=== PATIENT | male | born 1965 | race African-American/Black ===

== ENCOUNTER 2017-05-10 12:53 | Emergency (ER) | payer BC ==
--- NOTE | 2017-05-10 13:38 | EDM.PDOC ---
ED HPI GENERAL MEDICAL PROBLEM - General Chief Complaint: Laceration Stated Complaint: FALL/LACERATION LIP/RT CHEEK Time Seen by Provider: 05/10/17 13:23 Source of Information: Reports: Patient History Limitations: Reports: No Limitations - History of Present Illness INITIAL COMMENTS - FREE TEXT/NARRATIVE: HISTORY AND PHYSICAL: History of present illness: Patient is a 51-year-old male who presents to the emergency room after falling on Thursday afternoon. He states he was ambulating and became dizzy and had a syncopal event hitting his face on the gravel ground. He reports afterwards he felt "fine" had a mild headache and facial abrasions. He denies any chest pain, shortness of breath, abdominal pain, nausea, vomiting or diarrhea. Review of systems: As per history of present illness and below otherwise all systems reviewed and negative. Past medical history: As per history of present illness and as reviewed below otherwise noncontributory. Surgical history: As per history of present illness and as reviewed below otherwise noncontributory. Social history: No reported history of drug or alcohol abuse. Family history: As per history of present illness and as reviewed below otherwise noncontributory. Physical exam: HEENT: Atraumatic, normocephalic, pupils reactive, negative for conjunctival pallor or scleral icterus, mucous membranes moist, throat clear, neck supple, nontender, trachea midline. Lungs: Clear to auscultation, breath sounds equal bilaterally, chest nontender. Heart: S1S2, regular, negative for clicks, rubs, or JVD. Abdomen: Soft, nondistended, nontender. Negative for masses or hepatosplenomegaly. Negative for costovertebral tenderness. Pelvis: Stable nontender. Genitourinary: Deferred. Rectal: Deferred. Skin: Abrasion noted to right cheekbone near the tenriism, approximately the size of a quarter. Healing laceration/abrasion noted to right upper lip, does appear to have some yellow exudate noted in the center with soft tissue swelling. Extremities: Atraumatic, negative for cords or calf pain. Neurovascular unremarkable. Neuro: Awake, alert, oriented. Cranial nerves II through XII unremarkable. Cerebellum unremarkable. Motor and sensory unremarkable throughout. Exam nonfocal. Patient is agreeable to routine labs and a head CT. He states he feels "fine now " but does have a mild headache. Has abrasion to his right cheek and bacitracin applied. Does have a abrasion to the upper lip which appears macerated with yellow exudate. His teeth are intact and denies any of them being loose. No laceration or abrasion noted to the tongue. Denies any difficulty breathing. CBC, CMP, Troponin, EKG, are normal. Normal chest x-ray. Head CT shows no acute intracranial abnormality with some soft tissue prominence within the sella. Currently staying with eyes closed, breathing easily and vital signs are stable. Diagnostics: CBC, CMP, troponin, EKG, head CT, one view chest, orthostatic vital signs Therapeutics: IV fluid, bacitracin, tdap Impression: Syncopal Event Fall Abrasion Plan: 1. Keflex 500mg, 1 tab twice daily 5 days. Please keep your abrasions clean and dry. Tramadol 1 tablet every 4-6 hours as needed for pain. This medication can make you drowsy so do not take it when driving or needing to be functioning at work. You may take Tylenol and/or ibuprofen during work hours or when driving. 2. Ice to the facial area to help with swelling and pain. 3. Follow up with her primary caregiver in the next 1-2 days. Return to the ED as needed and as discussed. Definitive disposition and diagnosis as appropriate pending reevaluation and review of above. Onset Date: 05/08/17 Duration: Day(s): Location: Reports: Face - Related Data Allergies Allergy/AdvReac Type Severity Reaction Status Date / Time No Known Allergies Allergy Verified 05/10/17 13:06 Home Meds: Home Meds Ibuprofen [Advil] 2 tab PO DAILY 06/06/14 [History] Past Medical History - Past Health History Medical/Surgical History: Denies Medical/Surgical History Social & Family History - Family History Family Medical History: Noncontributory - Tobacco Use Smoking Status *Q: Never Smoker Second Hand Smoke Exposure: No - Caffeine Use Caffeine Use: Reports: Coffee - Alcohol Use Days Per Week of Alcohol Use: 0 - Recreational Drug Use Recreational Drug Use: No ED ROS GENERAL - Review of Systems Review Of Systems: ROS reveals no pertinent complaints other than HPI. ED EXAM, SKIN/RASH Exam: See Below (See dictation) Course - Vital Signs Last Recorded V/S: Last Vital Signs Temp 98.5 F 05/10/17 13:06 Pulse 115 H 05/10/17 13:06 Resp 18 05/10/17 13:06 BP 129/78 05/10/17 13:06 Pulse Ox 98 05/10/17 13:06 - Orders/Labs/Meds Orders: Active Orders 24 hr Category Date Time Status Communication Order [RC] STAT Care 05/10/17 13:46 Active EKG Documentation Completion [RC] STAT Care 05/10/17 13:42 Active Vaccines to be Administered [RC] PER UNIT ROUTINE Care 05/10/17 13:46 Active Chest 1V Frontal [CR] Stat Exams 05/10/17 13:42 Taken Head wo Cont [CT] Stat Exams 05/10/17 13:42 Taken Labs: Laboratory Tests 05/10/17 05/10/17 Range/Units 13:53 13:53 WBC 7.98 (4.0-11.0) K/uL RBC 4.45 L (4.50-5.90) M/uL Hgb 13.7 (13.0-17.0) g/dL Hct 39.8 (38.0-50.0) % MCV 89.4 (80.0-98.0) fL MCH 30.8 (27.0-32.0) pg MCHC 34.4 (31.0-37.0) g/dL RDW Std Deviation 39.6 (28.0-62.0) fl RDW Coeff of Rex 12 (11.0-15.0) % Plt Count 225 (150-400) K/uL MPV 11.60 (7.40-12.00) fL Neut % (Auto) 75.4 (48.0-80.0) % Lymph % (Auto) 12.9 L (16.0-40.0) % [place] % (Auto) 9.3 (0.0-15.0) % Eos % (Auto) 2.3 (0.0-7.0) % Baso % (Auto) 0.1 (0.0-1.5) % Neut # (Auto) 6.0 H (1.4-5.7) K/uL Lymph # (Auto) 1.0 (0.6-2.4) K/uL [place] # (Auto) 0.7 (0.0-0.8) K/uL Eos # (Auto) 0.2 (0.0-0.7) K/uL Baso # (Auto) 0.0 (0.0-0.1) K/uL Nucleated RBC % 0.0 /100WBC Nucleated RBCs # 0 K/uL Sodium 139 (136-146) mmol/L Potassium 4.2 (3.5-5.1) mmol/L Chloride 106 (98-110) mmol/L Carbon Dioxide 23 (21-31) mmol/L BUN 10 (6.0-23.0) mg/dL Creatinine 1.1 (0.6-1.5) mg/dL Est Cr Clr Drug Dosing 86.22 mL/min Estimated GFR (MDRD) > 60.0 ml/min Glucose 134 H (60-110) mg/dL Calcium 9.3 (8.8-10.8) mg/dL Total Bilirubin 0.3 (0.1-1.5) mg/dL AST 18 (5-40) IU/L ALT 14 (8-54) IU/L Alkaline Phosphatase 89 (40-150) Troponin I < 0.10 (0.0-0.29) NG/ML Total Protein 7.1 (6.0-8.0) g/dL Albumin 3.7 (3.5-5.0) g/dL Globulin 3.4 (2.0-3.5) g/dL Albumin/Globulin Ratio 1.1 L (1.3-2.8) Meds: Medications Discontinued Medications Generic Name Dose Route Start Last Admin Trade Name Freq PRN Reason Stop Dose Admin Bacitracin 1 dose 05/10/17 15:13 Bacitracin Oint 1 Gm TOP 05/10/17 15:14 ONETIME ONE Diphtheria/Tetanus/Acell Pertussis 0.5 ml 05/10/17 13:46 05/10/17 14:24 Adacel IM 05/10/17 13:47 0.5 ml .ONCE ONE Administration Sodium Chloride 1,000 mls @ 999 mls/hr 05/10/17 13:46 05/10/17 13:55 Normal Saline IV 05/10/17 14:46 999 mls/hr STAT ONE Administration Mupirocin 1 gm 05/10/17 13:46 Bactroban Oint TOP 05/10/17 13:47 ONETIME ONE Departure - Departure Time of Disposition: 15:21 Disposition: Home, Self-Care 01 Clinical Impression: Abrasion Syncope Qualifiers: Syncope type: unspecified Qualified Code(s): R55 - Syncope and collapse Fall Qualifiers: Encounter type: initial encounter Qualified Code(s): W19.XXXA - Unspecified fall, initial encounter - Discharge Information Referrals: PCP,None [Primary Care Provider] - Forms: ED Department Discharge Additional Instructions: My general discharge The following information is given to patients seen in the emergency department who are being discharged to home. This information is to outline your options for follow-up care. We provide all patients seen in our emergency department with a follow-up referral. The need for follow-up, as well as the timing and circumstances, are variable depending upon the specifics of your emergency department visit. If you don't have a primary care physician on staff, we will provide you with a referral. We always advise you to contact your personal physician following an emergency department visit to inform them of the circumstance of the visit and for follow-up with them and/or the need for any referrals to a consulting specialist. The emergency department will also refer you to a specialist when appropriate. This referral assures that you have the opportunity for follow-up care with a specialist. All of these measure are taken in an effort to provide you with optimal care, which includes your follow-up. Under all circumstances we always encourage you to contact your private physician who remains a resource for coordinating your care. When calling for follow-up care, please make the office aware that this follow-up is from your recent emergency room visit. If for any reason you are refused follow-up, please contact the [facility] Emergency Department at and asked to speak to the emergency department charge nurse. [facility] [address] [place] [id number] 1. Keflex 500mg, 1 tab twice daily 5 days. Please keep your abrasions clean and dry. Tramadol 1 tablet every 4-6 hours as needed for pain. This medication can make you drowsy so do not take it when driving or needing to be functioning at work. You may take Tylenol and/or ibuprofen during work hours or when driving. 2. Ice to the facial area to help with swelling and pain. 3. Follow up with her primary caregiver in the next 1-2 days. Return to the ED as needed and as discussed. - My Orders Last 24 Hours: My Active Orders 05/10/17 13:42 EKG Documentation Completion [RC] STAT Chest 1V Frontal [CR] Stat Head wo Cont [CT] Stat 05/10/17 13:46 Communication Order [RC] STAT Vaccines to be Administered [RC] PER UNIT ROUTINE - Assessment/Plan Last 24 Hours: My Active Orders 05/10/17 13:42 EKG Documentation Completion [RC] STAT Chest 1V Frontal [CR] Stat Head wo Cont [CT] Stat 05/10/17 13:46 Communication Order [RC] STAT Vaccines to be Administered [RC] PER UNIT ROUTINE
[2017-05-10] MEDS ORDERED: Mupirocin Oint 22 GM Tube TOP ONE (13:46)
[2017-05-10] MEDS ORDERED: Sodium Chloride 0.9% 1,000 ML IV ONE (13:46)
[2017-05-10] MEDS ORDERED: Diphtheria,Pertussis(Acell),Tetanus Vaccine 0.5 ML Syringe IM ONE (13:46)
[2017-05-10 14:27] LABS: CHLORIDE,CL 106 mmol/L (98-110); SODIUM,NA 139 mmol/L (136-146)
[2017-05-10] MEDS ORDERED: Bacitracin Oint 1 GM U/D Packet TOP ONE (15:13)
[2017-05-10 15:44] VITALS: BP 123/84
--- NOTE | 2017-05-11 13:43 | CT ---
EXAM DATE: 05/10/17 PATIENT'S AGE: 51 Patient: DINA BAILON Facility: [place], [place] Site . Site : 1965 Study: CT Head [id number] 2:15:02 PM Ordering Physician: Thai Dumont Final Report: Indication: Fall, dizziness. Comparison: None. Technique: Axial CT of the head without contrast. Findings: Normal brain parenchymal morphology. No acute intracranial hemorrhage, acute infarct, mass effect, or fracture. No midline shift. No abnormal ventricular dilatation. Normal calvarium and skull base. Visualized mastoid air cells are clear. Mucosal thickening within the visualized left maxillary sinus. Mucosal thickening within scattered ethmoid air cells. There is soft tissue prominence within the sella and discontinuity along the right aspect of the tuberculum sella (coronal image 34). Correlate for any history of transsphenoidal surgery. No the liver evidence of a suprasellar mass. No impingement of the optic chiasm. Impression: 1. No acute intracranial abnormality. 2. Normal brain parenchymal morphology and signal intensity. 3. Soft tissue prominence within the sella with small focal defect of the right tuberculum sella. Findings may be due to postoperative change. Consider interval followup with MRI of the sella without and with IV gadolinium for further evaluation. Please note that all CT scans at this facility use dose modulation, iterative reconstruction, and/or weight-based dosing when appropriate to reduce radiation dose to as low as reasonably achievable. Dictated by Jani Ayon MD @ May 10 2017 2:16PM (Electronic Signature) Report Signed by Proxy. MTDD
--- NOTE | 2017-05-11 13:43 | CR ---
EXAM DATE: 05/10/17 PATIENT'S AGE: 51 Patient: DINA BAILON Facility: [place], [place] Site . Site : 1965 Study: XRay Chest [id number] 2:17:23 PM Ordering Physician: Thai Dumont Final Report: INDICATION: Trauma. Fall. Dizziness. TECHNIQUE: PA chest. FINDINGS: Clear lungs. Normal heart size and pulmonary vascularity. Normal included skeletal thorax. IMPRESSION: Negative single-view chest xray. Dictated by Vinay Zavala MD @ 05/10/2017 2:21:45 PM Dictated by: Vinay Zavala MD @ 05/10/2017 14:21:58 (Electronic Signature) Report Signed by Proxy. SELIN
== END 2017-05-10 15:33 | disposition home or self-care (01) ==
LOC: MW.ED 12:53
DX: R55 Syncope and collapse (principal); S00.81XA Abrasion of other part of head, initial encounter; Z23 Encounter for immunization; W19.XXXA Unspecified fall, initial encounter
CPT/HCPCS: 36415; 70450; 71045; 80053; 84484; 85025; 90471; 90715; 93005; 96360; 99284; J7040